=== PATIENT | male | born 1980 | race Caucasian/White ===

== ENCOUNTER 2019-01-08 22:51 | Emergency (ER) | payer SELFPAY ==
[~2019-01-08] VITALS: Ht 172.7 cm; Wt 93.7 kg
[2019-01-08 23:15] VITALS: BP 113/95
--- NOTE | 2019-01-08 23:23 | NUR ---
PT AMBULATED TO BED 06 WITH STEADY GAIT.
--- NOTE | 2019-01-09 | NUR ---
DR SHORT AT BEDSIDE EVALUATING PT.
--- NOTE | 2019-01-09 00:05 | NUR ---
Dr. Knutson examining patient.
[2019-01-09] MEDS ORDERED: NACL 0.9% 1,000 ML IV SCH (00:09)
[2019-01-09] MEDS ORDERED: ONDANSETRON 4 MG/2 ML VIAL IVP ONE (00:10)
[2019-01-09] MEDS ORDERED: KETOROLAC 30 MG/ML VIAL IVP ONE (00:10)
--- NOTE | 2019-01-09 00:20 | NUR ---
PT TO CT SCAN VIA WHEECHAIR .
[2019-01-09 00:22] LABS: BASOPHILS # (AUTO) 0.1 K/uL (0.00-0.22); BASOPHILS % (AUTO) 0.6 % (0.0-2.0); EOSINOPHILS # (AUTO) 0.1 K/uL (0-0.4); EOSINOPHILS % (AUTO) 0.8 % (0.0-4.0); HEMATOCRIT 45.6 % (36-52); LYMPHOCYTES # (AUTO) 2.6 K/uL (2.0-11.5); LYMPHOCYTES % (AUTO) 21.6 % (20.5-51.1); MEAN CORPUSCULAR HEMOGLOBIN 27 pg (27-31); MEAN CORPUSCULAR HGB CONC 33 g/dL (33-37); MONOCYTES % (AUTO) 8.1 % (1.7-9.3); NEUTROPHILS # (AUTO) 8.2 K/uL (1.8-7.7); NEUTROPHILS % (AUTO) 68.9 % (42.2-75.2); PLATELET COUNT (AUTO) 432 K/uL (140-450); RED CELL DISTRIBUTION WIDTH 16.1 % (11.6-13.7); WHITE BLOOD COUNT (AUTO) 11.8 K/uL (4.8-10.8)
[2019-01-09 00:23] LABS: APPEARANCE,URINE CLEAR (CLEAR); BILIRUBIN,URINE NEGATIVE (NEGATIVE); BLOOD, URINE 3+ (NEGATIVE); COLOR,URINE YELLOW (YELLOW); LEUKOCYTE ESTERASE ,URINE NEGATIVE (NEGATIVE); NITRITE, URINE NEGATIVE (NEGATIVE); PH,URINE 5.5 (5.0-9.0); UGLUCOSE NEGATIVE (NEGATIVE)
[2019-01-09 00:30] LABS: ANION GAP 15.8 (8-16); CARBON DIOXIDE 25.4 mmol/L (21-32); POTASSIUM 4.2 mmol/L (3.5-5.1)
[2019-01-09 00:32] LABS: RBC,URINE TOO NUMEROUS TO COUN /HPF (0-5); WBC,URINE 0-5 /HPF (0-5)
--- NOTE | 2019-01-09 00:32 | NUR ---
PT RETURN FROM CT
[2019-01-09 00:36] LABS: ALBUMIN 4.2 g/dL (3.4-5.0); TOTAL BILIRUBIN 0.6 mg/dL (0.0-1.0)
--- NOTE | 2019-01-09 00:43 | NUR ---
38 Y/O MALE C/O BILATERAL LOWER BACK PAIN X 1 WEEK. HEMATURIA YESTERDAY. PAINFUL, BURNING URINATION. DENIES FEVER. PATIENT STATES, " i FEEL LIKE SOMEONE IS SITTING ON MY BACK" PAIN IS 7/10 ACUTE PAIN. A/O 4 FOLLOWS COMMANDS; BREATING UNLABORED AND LUNG SOUNDS CLEAR. SPOR @ 98%. ERMD AWARE OF STATUS. SIDE RAILS X1 AND PLACED ON MONITOR. PATIENT IS CALM AND COOPERATIVE. PMH-- DENIES RX-- DENIES
[2019-01-09 02:57] VITALS: BP 113/95
--- NOTE | 2019-01-09 02:57 | NUR ---
PT DISCHARGED WITH PAPERWORK. RX OSVALDO RACHEL. EDUCATED PT REGARDING MEDICATIONS AND S/E. EDUCATED PT REGARDING D/C INSTRUCTIONS AND DIAGNOSIS. PT VERBALIZED UNDERSTANDING OF TEACHING. TOLD PT TO FOLLOW UP WITH PCP AND WHEN TO RETURN TO ED. PT VSS. ALL QUESTIONS ANSWERED.
--- NOTE | 2019-01-10 09:54 | NUR ---
Late entry. Confirmed with RN that 0.9 NS 1000ml IV completed at 0115
== END 2019-01-09 02:57 | disposition home or self-care (01) ==
LOC: MED 22:51
DX: M54.5 Low back pain (principal); R31.9 Hematuria, unspecified; R11.2 Nausea with vomiting, unspecified; F12.10 Cannabis abuse, uncomplicated
CPT/HCPCS: 36415; 74176; 80053; 81001; 83690; 85025; 96361; 96374; 96375; 99284; J1885; J2405; J7030